=== PATIENT | female | born 1950 | race Caucasian/White ===

== ENCOUNTER 2018-01-22 06:25 | Day surgery (SDC) | payer MEDICARE, BC ==
--- OUTSIDE RECORDS SUMMARY | 2018-01-06 11:39 | XMSREPORT | Summary of Care ---
:1950 Author Organization [facility] Address [address] [place] [address] [address] [place] [address] Phone Care Team Providers Name Role Phone Provider, No Attributed RESOURCE Attributed Provider Unavailable Roni Burkett MD Primary Care Provider Reason for Referral Transitions of Care (Routine) Status Reason Specialty Diagnoses / Referred By Referred To Procedures Contact Contact New Request Patient Diagnoses Dysphagia, unspecified type Roni Burkett Chi Preference D, MD [facility], [address] [facility], [address] [facility] [address] [address] Phone: [place] [address] Fax: Status Reason Specialty Diagnoses / Procedures Referred By Contact Referred To Contact Roni Burkett MD [address] [place] [address] Transitions of Care (Routine) Status Reason Specialty Diagnoses / Referred By Referred To Procedures Contact Contact New Request Patient Diagnoses Screening for colon cancer Roni Burkett Chi Preference D, MD [facility], [address] [place], [place] [address] Phone: [place] [address] Fax: Reason for Visit Reason Comments Other Needs CAT scan done Encounter Details Date Type Department Care Team Description 01/01/2018 Office Visit [facility] Roni Lopez, Pulmonary nodule Clinic Family Medicine MD (Primary Dx);Screening [address] [place] [address] [place] cancer;Dysphagia, [phone] unspecified [phone] type;Atrial [phone] fibrillation, (Fax) unspecified type Allergies Active Allergy Reactions Severity Noted Date Comments Penicillin Other (Specify in 10/30/2014 Lip swelling Comments), Rash Azithromycin Hydrogencitrate Rash 11/04/2011 as of this encounter Medications Prescription Sig. Disp. Refills Start Date End Date Status aspirin 81 mg Take 81 mg by Active enteric coated mouth 1 time tablet per day. metFORMIN Take by mouth Active (GLUCOPHAGE) 850 MG 2 times a day tablet with meals. omega-3 fatty acids Take 1,000 mg Active (FISH OIL) 1000 mg by mouth 1 capsule time per day. Multiple Take 1 tablet Active Vitamins-Minerals by mouth. (MULTIVITAMIN PO) multivitamin/lutein Take 1 capsule Active (PROSIGHT;OCUVITE-MARCIO by mouth 1 TEIN) capsule time per day atorvaSTATin Take 1 tablet 90 tablet 3 04/02/2017 Active (LIPITOR) 10 mg (10 mg) by tabletIndications: mouth every Dyslipidemia night at bedtime pentoxifylline Take 1 tablet 180 tablet 3 04/02/2017 Active (TRENTAL) 400 mg CR (400 mg) by tabletIndications: mouth 2 times Livedoid vasculitis a day Tablet should be swallowed whole; do not chew , break, or crush levothyroxine 88 mcg Take 1 tablet 90 tablet 3 04/24/2017 Active tabletIndications: (88 mcg) by Hypothyroidism mouth 1 time (acquired) per day cyanocobalamin Take 1,000 mcg Active (VITAMIN B-12) 1000 by mouth 1 mcg tablet time per day dilTIAZem (CARDIZEM Take 1 capsule 90 capsule 3 08/10/2017 Active CD) 360 mg extended (360 mg) by release mouth 1 time capsuleIndications: per day Chronic atrial fibrillation calcium Take 1 tablet Discontinued carbonate-vitamin D by mouth 1 8 (CALCIUM time per day. 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 Schwartz 04/25/16, continue diltiazem and warfarin anticoagulation Hypothyroidism, postop 04/03/2016 Adenoma of left adrenal gland 03/31/2016 Overview: Adrenal adenoma (15 mm) coincidentally noted on CT of the chest on 03/31/16 [facility]. 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, on life long warfarin Arteritis 11/07/2005 as of this encounter Immunizations Name Dates Previously Given Next Due FLU VACCINE SINGLE 08/06/2015 DOSE(3YR+Fluarix/Fluzone;6MO+Flulaval;1 8yr+Afluria) H1N1 Injectable Vaccine 08/28/2009 HEP B VACCINE 10/30/2014 HEP B, adult 11/30/2014 03/30/2015 HEP B, peds/adol 10/30/2014 HEP B,adult 11/30/2014, 10/30/2014 Hep A, unspecified formulation 05/30/2015, 10/30/2014 Hep A,adult 10/30/2014 Hep A-Hep B 05/30/2015 Hepatitis B, Adult 11/30/2014, 10/30/2014 Influenza Trivalent w/preserv 07/14/2016, 08/04/2014, 08/12/2013, 07/19/2013, 08/12/2012 Influenza Vaccine 08/04/2014, 08/12/2013, 07/19/2013, 08/12/2012, 07/30/2011, 08/28/2009 Influenza Vaccine,unspecified 08/04/2014, 08/12/2013, 08/12/2012, 07/30/2011 Influenza Virus Vaccine, Split 08/12/2013, 08/12/2012 Pneumococcal Conj PCV13 11/29/2014 Pneumococcal Conj PCV7 11/29/2014 Pneumococcal Polysaccharide PPSV23 03/05/2017, 10/29/2009, 08/13/2004 TDAP 11/28/2013, 08/13/2004 Td(adult)preservative free 08/13/2004 Typhoid,oral 11/15/2014 Yellow Fever 01/16/2015 Zoster Live(Zostavax) 10/30/2009 as of this encounter Social History Tobacco Use Types Packs/Day Years Used Date Former Smoker Cigarettes 0.5 20 Quit: 10/12/1989 Smokeless Tobacco: Never Used Alcohol Use Drinks/Week oz/Week Comments Yes 0-1 Glasses of wine 0.0 - 0.6 0 Rare/Occasional Sex Assigned at Date Recorded Not on file as of this encounter Last Filed Vital Signs Vital Sign Reading Time Taken Blood Pressure 104/68 01/01/2018 8:16 AM CDT Pulse 90 01/01/2018 8:16 AM CDT Temperature - - Respiratory Rate 15 01/01/2018 8:16 AM CDT Oxygen Saturation 97% 01/01/2018 8:16 AM CDT Inhaled Oxygen Concentration - - Weight 68 kg (150 lb) 01/01/2018 8:16 AM CDT Height - - Body Mass Index 25.45 01/01/2018 8:16 AM CDT in this encounter Functional Status Functional Status Response Date of Assessment Do you have difficulty with walking, balance, climbing Yes 03/05/2017 stairs, or had a fall in the last 3 months? as of this encounter Progress Notes Roni Burkett MD - 01/01/2018 8:43 AM CDTFormatting of this note may be different from the original. Assessment / Plan 1. Pulmonary nodule 2. Screening for colon cancer - CLINIC REFERRAL ENDOSCOPY NON ONE CHART 3. Dysphagia, unspecified type - CLINIC REFERRAL ENDOSCOPY NON ONE CHART 4. Atrial fibrillation, unspecified type - CLINIC REFERRAL ANTICOAGULATION MANAGEMENT ONE CHART; Standing Other orders - CT CHEST WITHOUT CONTRAST; Future Plan: 1we will schedule a follow-up chest CT. 2we'll schedule EGD for her dysphagia as well as her screening colonoscopy. Hopefully we can getthose done the same day. She will need to be off her Coumadin for 4 days prior to her procedure. 3rissall set up and a coag clinic through [facility] Medications Prior to Visit Medication Sig Dispense Refill dilTIAZem (CARDIZEM CD) 360 mg extended release capsule Take 1 capsule (360 mg) by mouth 1 time per day 90 capsule 3 cyanocobalamin (VITAMIN B-12) 1000 mcg tablet Take 1,000 mcg by mouth 1 time per day doxycycline (VIBRAMYCIN) 100 mg tablet Take one daily 3 days prior to malaria exposure through 4weeks post exposure 45 tablet 1 levothyroxine 88 mcg tablet Take 1 tablet (88 mcg) by mouth 1 time per day 90 tablet 3 atorvaSTATin (LIPITOR) 10 mg tablet Take 1 tablet (10 mg) by mouth every night at bedtime 90 tablet 3 pentoxifylline (TRENTAL) 400 mg CR tablet Take 1 tablet (400 mg) by mouth 2 times a day Tablet should be swallowed whole; do not chew , break, or crush 180 tablet 3 warfarin (COUMADIN) 5 mg tablet Take 1 tablet (5 mg) by mouth 1 time per day 90 tablet 3 multivitamin/lutein (PROSIGHT;OCUVITE-LUTEIN) capsule Take 1 capsule by mouth 1 time per day aspirin 81 mg enteric coated tablet Take 81 mg by mouth 1 time per day. metFORMIN (GLUCOPHAGE) 850 MG tablet Take by mouth 2 times a day with meals. omega-3 fatty acids (FISH OIL) 1000 mg capsule Take 1,000 mg by mouth 1 time per day. Multiple Vitamins-Minerals (MULTIVITAMIN PO) Take 1 tablet by mouth. calcium carbonate-vitamin D (CALCIUM CARBONATE-VITAMIN D) 600 mg-200 unit tablet Take 1 tablet by mouth 1 time per day. No facility-administered medications prior to visit. 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 Primarily she is here to be scheduled for her follow-up chest CT for pulmonary nodule that was noted a couple years ago. She has had normal follow-up CTs today. Her last CAT scan was one year ago showing a stable 7 mm and 4 mm pulmonary nodule. She was advised to have another CAT scan in one year. If her present CAT scan is normal I suspect we can discontinue follow-up. She would also like to be scheduled for her colonoscopy screening. She also wonders about some increasing belching and burping and reflux that she' s been having. It'sbeen manageable with ocnl-[id number]-[id number] medications but when questioned, she does admit to dysphagia perhaps once a week particularly meats and other chew foods get stuck and she will sometimes have to cough back up. This tends to hang up higher up in her esophagus she feels She denies abdominal pain She also has chronic atrial fibrillation on Coumadin and will need to stop her Coumadin for her procedure (colonoscopy and EGD). Physical Exam BP 104/68 Pulse 90 Resp 15 Wt 68 kg (150 lb) SpO2 97% BMI 25.45 kg/m2|| Heartirregularly irregular in the 80s. No murmurs. Lungsclear Extremitiesno edema Abdomen is soft with no epigastric discomfort in this encounter Plan of Treatment Name Priority Associated Diagnoses Order Schedule CT CHEST WITHOUT CONTRAST Routine Expected: 01/01/2018 (Approximate), Expires: 02/01/2019 Name Priority Associated Diagnoses Order Schedule CLINIC REFERRAL ENDOSCOPY Routine Screening for colon Ordered: 01/01/2018 NON ONE CHART cancer CLINIC REFERRAL Routine Atrial fibrillation, 99 Occurrences starting ANTICOAGULATION MANAGEMENT unspecified type 01/01/2018 until ONE CHART 01/01/2019 CLINIC REFERRAL ENDOSCOPY Routine Dysphagia, unspecified Ordered: 01/01/2018 NON ONE CHART type Health Maintenance Due Date Last Done Comments Hepatitis C Screening 1950 Diabetes Screening 1994 DEXA/Heel Scan 2014 Influenza Vaccine (#1) 2017 07/14/2016, 08/06/2015, 08/04/2014, Additional history exists Mammogram 03/11/2018 03/11/2017 Colonoscopy 06/29/2019 06/29/2014 Lipid Screening 02/23/2022 02/23/2017 (Previously completed) Tetanus Vaccine 11/28/2023 11/28/2013, 08/13/2004, 08/13/2004 Zoster Vaccine Completed 10/30/2009 Pneumococcal 65yr+ Low/Med Risk Completed 03/05/2017, 11/29/2014, 10/29/2009, Additional history exists as of this encounter Results Not on filein this encounter Visit Diagnoses Diagnosis Pulmonary nodule - Primary Solitary pulmonary nodule Screening for colon cancer Special screening for malignant neoplasms, colon Dysphagia, unspecified type Atrial fibrillation, unspecified type in this encounter"
--- OUTSIDE RECORDS SUMMARY | 2018-01-06 11:40 | XMSREPORT | Summary of Care ---
:1950 Author Organization [facility] Address [address] [place] [address] [address] [place] [address] Phone Care Team Providers Name Role Phone Provider, No Attributed RESOURCE Attributed Provider Unavailable Roni Burkett MD Primary Care Provider Reason for Referral Transitions of Care (Routine) Status Reason Specialty Diagnoses / Referred By Referred To Procedures Contact Contact New Request Patient Diagnoses Dysphagia, unspecified type Roni Burkett Chi Preference D, MD [facility], [address] [facility], [address] [facility] [address] [address] Phone: [place] [address] Fax: Status Reason Specialty Diagnoses / Procedures Referred By Contact Referred To Contact Roni Burkett MD [address] [place] [address] Transitions of Care (Routine) Status Reason Specialty Diagnoses / Referred By Referred To Procedures Contact Contact New Request Patient Diagnoses Screening for colon cancer Roni Burkett Chi Preference D, MD [facility], [address] [place], [place] [address] [address] [address] Phone: [place] [address] Fax: Reason for Visit Reason Comments Other Needs CAT scan done Encounter Details Date Type Department Care Team Description 01/01/2018 Office Visit [facility] Roni Lopez, Pulmonary nodule Clinic Family Medicine MD (Primary Dx);Screening [address] [place] [address] [place] cancer;Dysphagia, [address] unspecified [phone] type;Atrial [phone] fibrillation, (Fax) unspecified type Allergies Active Allergy [...] Date Long-term (current) 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 Schwartz 04/25/16, continue diltiazem and warfarin anticoagulation Hypothyroidism, postop 04/03/2016 Adenoma of left adrenal gland 03/31/2016 Overview: Adrenal adenoma (15 mm) coincidentally noted on CT of the chest on 03/31/16 [facility]. Stable on follow-up CT on June 2016, [...] up and a coag clinic through [facility] Out[facility] Medications Prior to Visit Medication Sig [...] gland Pulmonary nodule Low serum vitamin B12 [facility] current use of anticoagulant therapy History Marilu [...] she' s been having. It'sbeen manageable with [id number] medications but when questioned, she does admit [...]
[2018-01-22] MEDS ORDERED: Lactated Ringers 1,000 ML IV SCH (06:30)
[2018-01-22] MEDS ORDERED: Midazolam 1 MG/ML 2 ML SDV ONE (07:23)
[2018-01-22] MEDS ORDERED: fentaNYL 100 MCG/2 ML SDV ONE (07:23)
[2018-01-22] MEDS ORDERED: Propofol 200 MG/20 ML SDV ONE (07:23)
[2018-01-22 09:01] VITALS: BP 111/71
--- NOTE | 2018-01-22 11:05 | OR ---
DATE OF PROCEDURE: 01/22/2018 PROCEDURE: 1. EGD. 2. Colonoscopy. FINDINGS: 1. Inflammation at the GE junction consistent with reflux disease. 2. Diverticulosis. COMPLICATIONS: None. 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 ANESTHESIA: MAC. RISKS: Risks, benefits, alternatives, and limitations including, but not limited to infection, bleeding, and perforation were explained to the patient, who wished to proceed. PROCEDURE IN DETAIL: The patient was placed in left lateral decubitus position. The EGD scope was introduced atraumatically to second part of the duodenum. No evidence of gastritis or ulceration. At the GE junction, there was inflammation consistent with reflux disease. The esophagus was normal. Of note, the biopsies of the GE junction was performed in all 4 quadrants. The colonoscopy was performed next. Digital rectal exam was performed without abnormality. Scope was introduced and advanced atraumatically to the ileocecal valve. The scope was brought back through the ascending, transverse, descending colon, and retroflexed. The patient is noted to have diverticulosis, described as moderate, without any evidence of diverticulitis. No other abnormalities. No polyps. No masses. No old or new blood. The patient tolerated the procedure well. Brennon Cope MD /[id number]
== END 2018-01-22 09:33 | disposition home or self-care (01) ==
LOC: JP.SDS 06:25
PROVIDERS: ATTEND Surgery
DX: Z12.11 Encounter for screening for malignant neoplasm of colon (principal); K57.30 Diverticulosis of large intestine without perforation or abscess without bleeding; K22.8 Other specified diseases of esophagus; E78.5 Hyperlipidemia, unspecified; E03.9 Hypothyroidism, unspecified; I48.91 Unspecified atrial fibrillation; Z86.010 Personal history of colon polyps; Z87.891 Personal history of nicotine dependence; Z88.0 Allergy status to penicillin; Z88.1 Allergy status to other antibiotic agents; Z79.01 Long term (current) use of anticoagulants
CPT/HCPCS: 43239; 88305; G0105; J2250; J2704; J3010; J7120

== ENCOUNTER 2019-07-21 07:38 | Emergency (ER) | payer MEDICARE, BC ==
[2019-07-21 07:58] VITALS: BP 143/89; PULSE 108
[2019-07-21] MEDS ORDERED: Diphtheria,Pertussis(Acell),Tetanus Vaccine 0.5 ML SDV IM ONE (08:17)
[2019-07-21] MEDS ORDERED: Bacitracin Oint 1 GM U/D Packet TOP ONE (08:22)
--- NOTE | 2019-07-21 08:22 | EDM.PDOC ---
ED HPI GENERAL MEDICAL PROBLEM - General Chief Complaint: Laceration Stated Complaint: NOSE BLEED Time Seen by Provider: 07/21/19 08:18 Source of Information: Reports: Patient History Limitations: Reports: No Limitations - History of Present Illness INITIAL COMMENTS - FREE TEXT/NARRATIVE: pt arrived with pain in her nose. She does have a cut over the top of the nose. She tripped over the dog in the hallway. She was not knocked out. She had no visual symptoms. She hit her face and not her forehad area. She is on coumadin therapy. Pt had a contusion to her rt knee but that is not bothering her. She hit her left hand but that is not bothering her either. Onset: Today, Sudden Duration: Hour(s): Location: Reports: Face, Upper Extremity, Left Associated Symptoms: Reports: Other (pt does not have a headache or any other symptoms. ) Face/Facial Pain Score (Numeric/FACES): 6 - Related Data Allergies Allergy/AdvReac Type Severity Reaction Status Date / Time azithromycin Allergy Rash Verified 07/21/19 07:58 [From Zithromax Z-Juan] Penicillins Allergy Rash Verified 07/21/19 07:58 Home Meds: Home Meds Levothyroxine [Synthroid] 88 mcg PO DAILY 06/27/14 [History] Multivitamin [Multi-Vitamin Daily] 1 each PO DAILY 06/27/14 [History] Grapevine-3 Fatty Acids [Grapevine-3] 1,000 mg PO DAILY 06/27/14 [History] Pentoxifylline [TRENtal] 400 mg PO TID 06/27/14 [History] metFORMIN [Glucophage] 850 mg PO BID 06/27/14 [History] Acetaminophen with Codeine [Tylenol with Codeine #3 Tablet] 1 tab PO ASDIRECTED 01/21/18 [History] Calcium Carbonate/Vitamin D3 [Calcium 600 + Vit D Tablet] 1 cap PO DAILY [History] Lutein Extract/Zeaxanthin Ext [Lutein 15 MG Softgel] 1 tab PO DAILY 01/21/18 [ History] Warfarin [Coumadin] 5 mg PO ASDIRECTED 01/21/18 [History] dilTIAZem HCl [Diltiazem 24Hr Cd] 360 mg PO DAILY 01/21/18 [History] Alendronate Sodium 70 mg PO WEEKLY 07/21/19 [History] Past Medical History HEENT History: Reports: Impaired Vision Cardiovascular History: Reports: Afib, High Cholesterol Gastrointestinal History: Reports: Colon Polyp 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 Dermatologic History: Reports: None - Infectious Disease History Infectious Disease History: Reports: Chicken Pox, Measles - Past Surgical History Head Surgeries/Procedures: Reports: None HEENT Surgical History: Reports: None Cardiovascular Surgical History: Reports: None GI Surgical History: Reports: Cholecystectomy, Colonoscopy Endocrine Surgical History: Reports: Thyroidectomy Dermatological Surgical History: Reports: Skin Biopsy Social & Family History - Family History Family Medical History: Noncontributory - Tobacco Use Smoking Status *Q: Former Smoker Used Tobacco, but Quit: Yes Month/Year Tobacco Last Used: 30 years ago - Caffeine Use Caffeine Use: Reports: None - Recreational Drug Use Recreational Drug Use: No - Living Situation & Occupation Living situation: Reports: , with Spouse Occupation: Retired ED ROS GENERAL - Review of Systems Review Of Systems: See Below Constitutional: Reports: No Symptoms HEENT: Reports: Nosebleed, Nose Pain, Other (pt had a contusion to her nose and she has sig swelling. ) Respiratory: Reports: No Symptoms Cardiovascular: Reports: No Symptoms Endocrine: Reports: No Symptoms GI/Abdominal: Reports: No Symptoms : Reports: No Symptoms Musculoskeletal: Reports: No Symptoms Skin: Reports: No Symptoms ED EXAM, SKIN/RASH Exam: See Below Text/Narrative:: pt arrived with a contusion to the nose. She tripped over the dog in the hallway. She hit her nose and had a nose bleed. She has a 1/4 inch laceration on the middle of the nose. Exam Limited By: No Limitations General Appearance: Alert, Anxious, Mild Distress Ears: Normal TMs Nose: Normal Inspection Throat/Mouth: Normal Inspection Head: Other (pt has a contusion of the nose with swelling. She appears to not be deformed. ) Neck: Normal Inspection Respiratory/Chest: No Respiratory Distress Cardiovascular: Regular Rate, Rhythm GI/Abdominal: Soft, Non-Tender (Female) Exam: Deferred Rectal (Female) Exam: Deferred Back Exam: Normal Inspection Extremities: Normal Inspection Neurological: Alert, Oriented, Normal Cognition Psychiatric: Normal Affect Course - Vital Signs Last Recorded V/S: Last Vital Signs Temp 36.1 C 07/21/19 07:57 Pulse 108 H 07/21/19 07:57 Resp 18 07/21/19 07:57 BP 143/89 H 07/21/19 07:57 Pulse Ox 97 07/21/19 07:57 - Orders/Labs/Meds Orders: Active Orders 24 hr Category Date Time Status Vaccines to be Administered [RC] PER UNIT ROUTINE Care 07/21/19 08:17 Active Labs: Laboratory Tests 07/21/19 Range/Units 08:16 PT 21.2 H (9.5-12.0) sec INR 2.04 H (0.80-1.20) Meds: Medications Discontinued Medications Generic Name Dose Route Start Last Admin Trade Name Elfego PRN Reason Stop Dose Admin Bacitracin 1 dose 07/21/19 08:22 07/21/19 08:38 Bacitracin Oint 1 Gm TOP 07/21/19 08:23 1 dose ONETIME ONE Administration Diphtheria/Tetanus/Acell Pertussis 0.5 ml 07/21/19 08:17 07/21/19 08:36 Adacel IM 07/21/19 08:18 0.5 ml .ONCE ONE Administration Lidocaine HCl 5 ml 07/21/19 08:22 07/21/19 08:38 Xylocaine-Mpf 1% INJECT 07/21/19 08:23 5 ml ONETIME ONE Administration - Re-Assessments/Exams Free Text/Narrative Re-Assessment/Exam: 07/21/19 09:11 pt has a small nasal fracture --just off the tip of the nasal bone. She has a laceration at that level so this would be a open fractu She has a left maxillary sinus which appears to be filled with blood. . 07/21/19 10:26 cat scan of the head was normal. She appears to have blood in he left maxilary sinus. Departure - Departure Time of Disposition: 10:27 Disposition: Home, Self-Care 01 Condition: Fair Clinical Impression: Nasal bones, open fracture, Left maxillary sinus opacification - Discharge Information Instructions: VIS, Diphtheria, Tetanus, and Pertussis (DTaP) - [facility] (02/25/2007) , Laceration Care, Adult, [id number] Referrals: Roni Bukrett MD [Primary Care Provider] - Forms: ED Department Discharge Care Plan Goals: keflex 500mg tid, tyleniol and for pain, keep laceration dry, no further ointments, sr in 6 days. - My Orders Last 24 Hours: My Active Orders 07/21/19 08:17 Vaccines to be Administered [RC] PER UNIT ROUTINE - Assessment/Plan Last 24 Hours: My Active Orders 07/21/19 08:17 Vaccines to be Administered [RC] PER UNIT ROUTINE
--- NOTE | 2019-07-21 08:52 | CRLCR ---
Indication: Nose pain after fall Technique: Three views of the facial bones Comparison: None available Findings: There is a nondisplaced fracture at the tip of the nasal bone. There is an air-fluid level in the left maxillary sinus. There are no additional fractures identified. Impression: : 1. Nondisplaced fracture at the tip of the nasal bone. 2. Air-fluid level in left maxillary sinus. The differential would include acute sinusitis or blood from a more extensive facial fracture. The fracture is not identified on these radiographs. If there is concern for more extensive facial fractures on clinical examination, a CT of the face is recommended. Dictated by Earl Salinas MD @ Jul 21 2019 8:49AM Signed by Dr. Earl Salinas @ Jul 21 2019 8:52AM
--- NOTE | 2019-07-21 10:18 | CRLCT ---
Examination: CT brain Indication: Air-fluid level in left maxillary sinus. Recent fall. Technique: Contiguous axial images from the foramen magnum to the vertex obtained without IV contrast. Coronal and sagittal reformats are generated and reviewed. Comparison: Facial CT acquired concurrently. Findings: No mass effect or midline shift. Basal cisterns are patent. No space-occupying lesion or intracranial hemorrhage. No edema or other evidence of acute cortical-based infarction. No extra-axial fluid collection. Ventricles and sulci are appropriate for the patient`s age. Visualized portions of the orbits are unremarkable. There is some fluid in the visualized portions of the left maxillary sinus. Remainder paranasal sinuses unremarkable. Impression: 1. No acute intracranial process. Please note that all CT scans at this facility use dose modulation, iterative reconstruction, and/or weight-based dosing when appropriate to reduce radiation dose to as low as reasonably achievable. Dictated by Earl Salinas MD @ Jul 21 2019 10:09AM Signed by Dr. Earl Salinas @ Jul 21 2019 10:17AM
--- NOTE | 2019-07-21 10:25 | CRLCT ---
Examination: CT face Indication: Fall. Air-fluid level in sinus on recent radiograph. Technique: Contiguous axial CT images are acquired through the facial bones. No IV contrast was administered. Coronal and sagittal reformations were generated and reviewed. Comparison: Sinus radiographs earlier same day. Findings: There is some dense fluid, likely blood products noted within the left maxillary sinus. No fracture of any of the sinus liz is noted. The remainder of the paranasal sinuses and mastoid air cells are unremarkable. There is some soft tissue swelling over the bridge of the nose and a small nondisplaced fracture of the distal nasal bone. No other soft tissue swelling. No radiopaque foreign body. Pterygoid plates are intact. Mandible is intact. Temporomandibular joints are located bilaterally. Zygomatic arches are intact. The orbital liz are intact. The globes are intact. The intraconal fat is normal. No proptosis. The visualized portions of the brain are unremarkable. Impression: 1. Soft tissue swelling over the bridge of the nose with a small nondisplaced nasal bone fracture noted. 2. No additional facial fractures are noted. Dense material in left maxillary sinus could be blood products versus inspissated material from prior sinusitis. Please note that all CT scans at this facility use dose modulation, iterative reconstruction, and/or weight-based dosing when appropriate to reduce radiation dose to as low as reasonably achievable. Dictated by Earl Salinas MD @ Jul 21 2019 10:17AM Signed by Dr. Earl Salinas @ Jul 21 2019 10:23AM
== END 2019-07-21 11:15 | disposition home or self-care (01) ==
LOC: JP.ED 07:38
DX: S02.2XXB Fracture of nasal bones, initial encounter for open fracture (principal); J32.0 Chronic maxillary sinusitis; I48.91 Unspecified atrial fibrillation; Z79.01 Long term (current) use of anticoagulants; Z88.1 Allergy status to other antibiotic agents; Z88.0 Allergy status to penicillin; Z87.891 Personal history of nicotine dependence; Z23 Encounter for immunization; Z79.899 Other long term (current) drug therapy; W01.0XXA Fall on same level from slipping, tripping and stumbling without subsequent striking against object, initial encounter; Y92.89 Other specified places as the place of occurrence of the external cause
CPT/HCPCS: 36415; 70160; 70450; 70486; 85610; 90471; 90715; 99284; J2001; 99283